=== PATIENT | male | born 2000 | race Two or more races ===

== ENCOUNTER 2021-09-28 08:41 | Emergency (ER) | payer MEDICAID, OTHER ==
[~2021-09-28] VITALS: Ht 175.3 cm; Wt 127.0 kg
[2021-09-28 08:50] VITALS: BP 140/80
[2021-09-28] MEDS ORDERED: TETANUS-DIPTH-ACEL PERTUSSIS 0.5ML SYR Tdap IM ONE (10:00)
== END 2021-09-28 10:09 | disposition home or self-care (01) ==
LOC: ER 08:41
DX: S61.012A Laceration without foreign body of left thumb without damage to nail, initial encounter (principal); W26.8XXA Contact with other sharp object(s), not elsewhere classified, initial encounter; Y93.89 Activity, other specified; Y92.89 Other specified places as the place of occurrence of the external cause; Y99.8 Other external cause status
CPT/HCPCS: 12001; 29130; 90471; 90715

== ENCOUNTER 2021-10-01 01:57 | Emergency (ER) | payer MEDICAID | END 2021-10-01 02:22 | disposition left against medical advice (07) | LOC: ER 01:57 | DX: Z48.01 Encounter for change or removal of surgical wound dressing (principal); Z53.21 Procedure and treatment not carried out due to patient leaving prior to being seen by health care provider ==